=== PATIENT | male | born 1970 | race Two or more races ===

== ENCOUNTER → 2024-11-07 | Emergency (ER) | payer OTHER | END | disposition left against medical advice (07) | LOC: ER 09:44 | DX: Z53.21 Procedure and treatment not carried out due to patient leaving prior to being seen by health care provider (principal) ==

== ENCOUNTER → 2024-12-11 | Emergency (ER) | payer OTHER ==
[~2024-12-11] VITALS: Ht 157.5 cm; Wt 65.8 kg
[~2024-12-11] MED LIST: SODIUM CHLORIDE 0.45 % 500 ML IV STA; THIAMINE HCL 100 MG/ML 2 ML VIAL IV STA; ZESTRIL2.5 MG PO
[2024-12-11 17:53] VITALS: BP 148/81; O2SAT 98
== END | disposition left against medical advice (07) ==
LOC: ER 16:36
DX: Z53.21 Procedure and treatment not carried out due to patient leaving prior to being seen by health care provider (principal)

== ENCOUNTER 2024-12-12 07:58 | Emergency (ER) | payer OTHER ==
[~2024-12-12] VITALS: Ht 149.9 cm; Wt 66.2 kg
[2024-12-12] MEDS ORDERED: ZESTRIL2.5 MG PO (08:16)
== END 2024-12-12 08:57 | disposition home or self-care (01) ==
LOC: ER 07:58
DX: I10 Essential (primary) hypertension (principal)

== ENCOUNTER 2025-01-07 06:34 | Emergency (ER) | payer OTHER ==
[~2025-01-07] VITALS: Ht 149.9 cm; Wt 68.0 kg
[~2025-01-07 06:34] MED LIST changes: -SODIUM CHLORIDE 0.45 % 500 ML IV STA; -THIAMINE HCL 100 MG/ML 2 ML VIAL IV STA
[2025-01-07] MEDS ORDERED: KETOROLAC TROMETHAMINE 60 MG VIAL IM STA (08:16)
[2025-01-07] MEDS ORDERED: KETOROLAC TROMETHAMINE 60 MG VIAL IM ONE (08:46)
== END 2025-01-07 10:33 | disposition home or self-care (01) ==
LOC: ER 06:34
DX: M25.512 Pain in left shoulder (principal); M65.812 Other synovitis and tenosynovitis, left shoulder

== ENCOUNTER 2025-01-30 06:45 | Emergency (ER) | payer OTHER ==
[~2025-01-30] VITALS: Ht 149.9 cm; Wt 65.8 kg
[2025-01-30] MEDS ORDERED: THIAMINE HCL 100 MG/ML 2 ML VIAL IV ONE (09:00)
[2025-01-30] MEDS ORDERED: KETOROLAC TROMETHAMINE 60 MG VIAL IM ONE (09:00)
[2025-01-30] MEDS ORDERED: 0.9 % SODIUM CHLORIDE 500 ML IV ONE (09:00)
[2025-01-30] MEDS ORDERED: ONDANSETRON HCL 2 MG/ML VIAL IV ONE (09:00)
[2025-01-30] MEDS ORDERED: MULTIVIT INFUSN,ADULT 4,VIT K 10 ML VIAL IV ONE (09:00)
== END 2025-01-30 09:00 | disposition home or self-care (01) ==
LOC: ER 06:45
DX: R51.9 Headache, unspecified (principal)

== ENCOUNTER → 2025-02-04 | Emergency (ER) | payer OTHER ==
[~2025-02-04] VITALS: Ht 149.9 cm; Wt 65.8 kg
== END | disposition left against medical advice (07) ==
LOC: ER 16:42
DX: Z53.21 Procedure and treatment not carried out due to patient leaving prior to being seen by health care provider (principal)

== ENCOUNTER → 2025-02-05 | Emergency (ER) | payer OTHER ==
[~2025-02-05] VITALS: Ht 149.9 cm; Wt 63.5 kg
== END | disposition left against medical advice (07) ==
LOC: ER
DX: Z53.21 Procedure and treatment not carried out due to patient leaving prior to being seen by health care provider (principal)

== ENCOUNTER → 2025-03-02 | Emergency (ER) | payer OTHER ==
[~2025-03-02] VITALS: Ht 149.9 cm; Wt 63.5 kg
[~2025-03-02] MED LIST changes: +ACETAMINOPHEN500 M1 PO; +ZESTRIL2.5 MG
== END | disposition left against medical advice (07) ==
LOC: ER 06:35
DX: Z53.21 Procedure and treatment not carried out due to patient leaving prior to being seen by health care provider (principal)

== ENCOUNTER → 2025-03-16 | Emergency (ER) | payer OTHER ==
[~2025-03-16] VITALS: Ht 149.9 cm; Wt 65.8 kg
== END | disposition left against medical advice (07) ==
LOC: ER 08:33
DX: Z53.21 Procedure and treatment not carried out due to patient leaving prior to being seen by health care provider (principal)

== ENCOUNTER 2025-03-30 08:23 | Emergency (ER) | payer OTHER ==
[~2025-03-30] VITALS: Ht 149.9 cm; Wt 65.8 kg
== END 2025-03-30 10:02 | disposition home or self-care (01) ==
LOC: ER 08:23
DX: F14.10 Cocaine abuse, uncomplicated (principal)

== ENCOUNTER 2025-07-09 21:34 | Emergency (ER) | payer OTHER ==
[~2025-07-09] VITALS: Ht 149.9 cm; Wt 72.6 kg
[2025-07-09 22:25] VITALS: BP 129/83; O2SAT 97
[2025-07-09] MEDS ORDERED: KETOROLAC TROMETHAMINE 60 MG VIAL IM ONE ×2 (23:15→23:37)
[2025-07-09] MEDS ORDERED: THIAMINE HCL 100 MG TABLET PO ONE (23:15)
[2025-07-09] MEDS ORDERED: DEXAMETHASONE 4 MG TABLET PO ONE (23:15)
[2025-07-09] MEDS ORDERED: DEXAMETHASONE SODIUM PHOSPHATE 4 MG/ML VIAL ONE (23:37)
[2025-07-09] MEDS ORDERED: THIAMINE HCL 100 MG/ML 2 ML VIAL ONE (23:37)
== END 2025-07-09 23:49 | disposition home or self-care (01) ==
LOC: ER 21:35
DX: G44.89 Other headache syndrome (principal); F14.10 Cocaine abuse, uncomplicated

== ENCOUNTER → 2025-08-02 | Emergency (ER) | payer OTHER ==
[~2025-08-02] VITALS: Ht 162.6 cm; Wt 81.6 kg
[~2025-08-02] MED LIST changes: +0.9 % SODIUM CHLORIDE 1,000 ML IV ONE; +FAMOtidine 10 MG/ML (4ML VIAL) IV ONE; +ONDANSETRON HCL 2 MG/ML VIAL IV ONE; +THIAMINE HCL 100 MG/ML 2 ML VIAL IV ONE
[2025-08-02 22:25] LABS: BASO % 0.1 % (0.1-1.2); EOS # 0.00 (0.04-0.54); EOS % 0.0 % (0.7-7.0); LYMPH # 1.13 (1.18-3.74); LYMPH % 12.4 % (19.3-53.1); MEAN PLATELET VOLUME 9.20 fl (9.4-12.4); MONO # 0.50 (0.24-0.82); MONO % 5.5 % (4.7-12.5); NEUT # 7.48 (1.56-6.13); NEUT % 81.8 % (34.0-71.1); RED CELL DISTRIBUTION WIDTH 13.9 % (11.6-14.4)
[2025-08-02 22:50] LABS: ALT/SGPT 37.0 U/L (12-78); AST/SGOT 25.0 U/L (15-37); BILIRUBIN TOTAL 0.65 mg/dL (0.3-1.2); BUN CREA RATIO 24.0 (7.0-25.0); CREATININE SERUM 0.84 mg/dL (0.70-1.30); GFR 95.95; GLOBULINA 3.7 G/DL (2.4-3.5); GLUCOSE FASTING 160.0 mg/dL (65-100); OSMOLALITY SERUM 285.0 MOSM/KG (275-295)
== END | disposition left against medical advice (07) ==
LOC: ER 21:38
PROVIDERS: Preventive Medicine Public Health & General Preventive Medicine
DX: R10.12 Left upper quadrant pain (principal); F19.10 Other psychoactive substance abuse, uncomplicated; F10.10 Alcohol abuse, uncomplicated

== ENCOUNTER 2025-09-02 17:57 | Emergency (ER) | payer OTHER ==
[~2025-09-02] VITALS: Ht 149.9 cm; Wt 68.0 kg
[~2025-09-02 17:57] MED LIST changes: -0.9 % SODIUM CHLORIDE 1,000 ML IV ONE; -FAMOtidine 10 MG/ML (4ML VIAL) IV ONE; -ONDANSETRON HCL 2 MG/ML VIAL IV ONE; -THIAMINE HCL 100 MG/ML 2 ML VIAL IV ONE
[2025-09-02] MEDS ORDERED: BENZONATATE 100 MG CAPSULE PO ONE (18:45)
[2025-09-02] MEDS ORDERED: CETIRIZINE HCL 10 MG TABLET PO ONE (18:45)
== END 2025-09-02 23:49 | disposition left against medical advice (07) ==
LOC: ER 17:58
DX: J00 Acute nasopharyngitis [common cold] (principal); R05.8 Other specified cough